=== PATIENT | female | born 1965 ===

== ENCOUNTER 2017-01-13 08:59 | Emergency (ER) | payer MEDICAID ==
[2017-01-13 09:17] VITALS: BP 118/70; PULSE 59; RESP 20; TEMP 98.2; O2SAT 100
--- NOTE | 2017-01-13 09:35 | ED PDOC ---
Upper Extremity Pain/Injury Time Seen by Provider: 01/13/17 09:28 Chief Complaint (Nursing): Upper Extremity Problem/Injury History Per: Patient (Left sided neck pain radiating to left shopulder x 13 days. No trauma. No weakness or parasthesias) Onset/Duration Of Symptoms: Days (13) Current Symptoms Are (Timing): Still Present Quality: Sharp Severity: Mild Pain Scale Rating Of: 3 Past Medical History Vital Signs: Last Vital Signs Temp 98.2 F 01/13/17 09:14 Pulse 59 L 01/13/17 09:14 Resp 20 01/13/17 09:14 BP 118/70 01/13/17 09:14 Pulse Ox 100 01/13/17 09:14 - Medical History PMH: No Chronic Diseases - Family History Family History: States: Unknown Family Hx - Home Medications Home Medications: Ambulatory Orders Medication Instructions Recorded Cyclobenzaprine [Cyclobenzaprine 10 mg PO Q8 #10 tab 01/13/17 HCl] Naproxen [Naprosyn] 500 mg PO Q12H #20 tab 01/13/17 - Allergies Allergies/Adverse Reactions: Allergies Allergy/AdvReac Type Severity Reaction Status Date / Time No Known Allergies Allergy Verified 01/13/17 09:32 Review of Systems Constitutional: Negative for: Fever Musculoskeletal: Positive for: Neck Pain Neurological: Negative for: Weakness, Numbness Physical Exam - Physical Exam Appears: Positive for: Non-toxic, No Acute Distress Skin: Positive for: Normal Color, Warm, DRY Neck: Negative for: Normal (Left paracervical spasm and tenderness. No midline tenderness or deformity) Extremity: Positive for: Normal ROM Neurologic/Psych: Positive for: Alert, Oriented. Negative for: Motor/Sensory Deficits - ECG O2 Sat by Pulse Oximetry: 100 Disposition - Clinical Impression Clinical Impression: Radiculopathy of cervical region - Patient ED Disposition Is Patient to be Admitted: No Counseled Patient/Family Regarding: Studies Performed, Diagnosis, Need For Followup, Rx Given - Disposition Referrals: [facility] [Outside] Disposition: Routine/Home Disposition Time: 09:55 Condition: FAIR Prescriptions: Cyclobenzaprine [Cyclobenzaprine HCl] 10 mg PO Q8 #10 tab Naproxen [Naprosyn] 500 mg PO Q12H #20 tab Instructions: Cervical Radiculopathy (ED) Print Language: OCCITAN
--- NOTE | 2017-01-13 13:24 | RAD ---
PROCEDURE: Cervical Spine Radiographs. HISTORY: Pain. COMPARISON: None available. FINDINGS: BONES: Straightening of the normal cervical lordosis may be related to muscle spasm or positioning. No fracture. Dens tip is obscured, partially obscured ; visualized portions of the dens appear intact. DISC SPACES: Unremarkable. SOFT TISSUES: Unremarkable. No prevertebral soft tissue swelling. OTHER FINDINGS: None. IMPRESSION: Straightening of the normal cervical lordosis may be related to muscle spasm or positioning.
== END 2017-01-13 10:46 | disposition home or self-care (01) ==
LOC: H.ER 08:59
DX: M54.2 Cervicalgia (principal); M54.12 Radiculopathy, cervical region

== ENCOUNTER 2017-04-04 14:12 | Emergency (ER) | payer MEDICAID ==
[2017-04-04 14:31] VITALS: BP 121/68; PULSE 62; RESP 18; TEMP 98.2; O2SAT 99
--- NOTE | 2017-04-04 15:19 | ED PDOC ---
Upper Extremity Pain/Injury Time Seen by Provider: 04/04/17 14:43 Chief Complaint (Nursing): Upper Extremity Problem/Injury Chief Complaint (Provider): right arm pain History Per: Patient History/Exam Limitations: no limitations Additional Complaint(s): 51yo F in ED for eval of right elbow pain after bumping it on a wall 2 months ago. pt admits tot FROM of elbow, able to lift items and bring food to mouth etc. Pt denies numbness/tingling. admits to pin point tenderness to lateral aspect of elbow no radiation of pain. has not been seen by pmd. Past Medical History Reviewed: Historical Data, Nursing Documentation, Vital Signs Vital Signs: Last Vital Signs Temp 98.2 F 04/04/17 14:29 Pulse 62 04/04/17 14:29 Resp 18 04/04/17 14:29 BP 121/68 04/04/17 14:29 Pulse Ox 99 04/04/17 14:29 - Medical History PMH: No Chronic Diseases - Family History Family History: States: Unknown Family Hx - Home Medications Home Medications: Ambulatory Orders Medication Instructions Recorded Cyclobenzaprine [Cyclobenzaprine 10 mg PO Q8 #10 tab 01/13/17 HCl] Naproxen [Naprosyn] 500 mg PO Q12H #20 tab 01/13/17 Naproxen 500 mg PO BID #15 tab 04/04/17 - Allergies Allergies/Adverse Reactions: Allergies Allergy/AdvReac Type Severity Reaction Status Date / Time No Known Allergies Allergy Verified 04/04/17 14:29 Review of Systems ROS Statement: Except As Marked, All Systems Reviewed And Found Negative Musculoskeletal: Positive for: Other (elbow pain) Physical Exam - Reviewed Nursing Documentation Reviewed: Yes Vital Signs Reviewed: Yes - Physical Exam Appears: Positive for: Well, Non-toxic, No Acute Distress Skin: Positive for: Normal Color, Warm, DRY Cardiovascular/Chest: Positive for: Regular Rate, Rhythm Respiratory: Positive for: CNT, Normal Breath Sounds Extremity: Positive for: Other (elbow right: tenderness very mild to lateral olecron no swelling no deformity. FROM of elbow and wrist. nuerovasc intact) Neurologic/Psych: Positive for: Alert, Oriented - ECG O2 Sat by Pulse Oximetry: 99 Medical Decision Making Medical Decision Making: no indication for xray at this time. Pt will need followup with orthopedics and pmd most likely tendinitis and given sling and naproxen for pain. Disposition - Clinical Impression Clinical Impression: Elbow tendonitis - Patient ED Disposition Is Patient to be Admitted: No Counseled Patient/Family Regarding: Diagnosis, Need For Followup, Rx Given - Disposition Referrals: [facility] [place] [Outside] [facility] [place] [Outside] [facility] [Outside] Disposition: Routine/Home Disposition Time: 15:23 Condition: STABLE Prescriptions: Naproxen 500 mg PO BID #15 tab Instructions: Tendinitis (ED) Print Language: JAPANESE
== END 2017-04-04 15:15 | disposition home or self-care (01) ==
LOC: H.ER 14:12
DX: M77.9 Enthesopathy, unspecified (principal)

== ENCOUNTER 2017-07-21 14:47 | Emergency (ER) | payer OTHER, MEDICAID ==
[2017-07-21 15:20] VITALS: BP 110/61; PULSE 69; RESP 18; TEMP 96.8; O2SAT 100
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
--- NOTE | 2017-07-21 16:39 | RAD ---
HISTORY: thoracic pain COMPARISON: None available. TECHNIQUE: Chest PA and lateral FINDINGS: LUNGS: No focal consolidation. Please note that chest x-ray has limited sensitivity for the detection of pulmonary masses. PLEURA: No significant pleural effusion identified. No definite pneumothorax . CARDIOVASCULAR: The cardiomediastinal silhouette appears within normal limits of size. OSSEOUS STRUCTURES: No acute osseous abnormality identified. VISUALIZED UPPER ABDOMEN: Unremarkable. OTHER FINDINGS: None. IMPRESSION: No focal consolidation, significant pleural effusion, or definite pneumothorax identified.
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
== END 2017-07-21 17:47 | disposition home or self-care (01) ==
LOC: H.ER 14:47
DX: S09.90XA Unspecified injury of head, initial encounter (principal); S16.1XXA Strain of muscle, fascia and tendon at neck level, initial encounter; S39.012A Strain of muscle, fascia and tendon of lower back, initial encounter; V43.62XA Car passenger injured in collision with other type car in traffic accident, initial encounter; Y92.410 Unspecified street and highway as the place of occurrence of the external cause

== ENCOUNTER 2018-01-06 10:33 | Day surgery (SDC) | payer MEDICAID ==
[2018-01-06] MEDS ORDERED: Lactated Ringer's 500 ML IV ONE (11:12)
[2018-01-06] MEDS ORDERED: Propofol 10 mg/ml Inj (20 ML) ONE (12:16)
[2018-01-06 13:03] VITALS: TEMP 97.1; O2SAT 100
[2018-01-06 13:37] VITALS: BP 103/68; PULSE 60; RESP 15
== END 2018-01-06 13:36 | disposition home or self-care (01) ==
LOC: H.ENDO 10:33
PROVIDERS: ATTEND Internal Medicine Gastroenterology
DX: D50.9 Iron deficiency anemia, unspecified (principal); D12.5 Benign neoplasm of sigmoid colon; K64.0 First degree hemorrhoids; K31.89 Other diseases of stomach and duodenum; K21.0 Gastro-esophageal reflux disease with esophagitis
CPT/HCPCS: 43239; 45385; 88305; 88312; 88313; 88342; J2001; J2704; J7120

== ENCOUNTER 2018-04-17 16:12 | Emergency (ER) | payer MEDICAID ==
[2018-04-17 16:34] VITALS: BP 107/72; PULSE 70; RESP 16; TEMP 98.5; O2SAT 99
[2018-04-17] MEDS ORDERED: Naproxen 500 MG TAB PO STA (18:23)
[2018-04-17] MEDS ORDERED: Naproxen 500 MG TAB PO ONE (18:27)
--- NOTE | 2018-04-17 19:30 | ED PDOC ---
Lower Extremity Pain/Injury Time Seen by Provider: 04/17/18 17:26 Chief Complaint (Nursing): Lower Extremity Problem/Injury Chief Complaint (Provider): Left knee pain x 1 week History Per: Patient History/Exam Limitations: no limitations Onset/Duration Of Symptoms: Days Current Symptoms Are (Timing): Still Present Additional Complaint(s): 52 yo female with no medical problems presents for evaluation of left knee pain. PT reports pain 2-3 months but worse the last 1 week. No fever/chills. No recent trauma. PT states it feels slightly swollen intermittently. PT has not taken anything at home for pain. Pt has not seen PMD or orthopedics. Past Medical History Reviewed: Historical Data, Nursing Documentation, Vital Signs Vital Signs: Last Vital Signs Temp 98.5 F 04/17/18 16:32 Pulse 70 04/17/18 16:32 Resp 16 04/17/18 16:32 BP 107/72 04/17/18 16:32 Pulse Ox 99 04/17/18 16:32 - Medical History PMH: Anemia - Surgical History Surgical History: No Surg Hx - Family History Family History: States: Unknown Family Hx - Living Arrangements Living Arrangements: With Family - Social History Current smoker - smoking cessation education provided: No - Home Medications Home Medications: Ambulatory Orders Medication Instructions Recorded Naproxen [Naprosyn] 500 mg PO BID PRN #20 tablet 04/17/18 - Allergies Allergies/Adverse Reactions: Allergies Allergy/AdvReac Type Severity Reaction Status Date / Time No Known Allergies Allergy Verified 01/06/18 11:10 Review of Systems ROS Statement: Except As Marked, All Systems Reviewed And Found Negative Constitutional: Negative for: Fever, Chills Musculoskeletal: Positive for: Other Skin: Negative for: Bruising Physical Exam - Reviewed Nursing Documentation Reviewed: Yes Vital Signs Reviewed: Yes - Physical Exam Appears: Positive for: Well, Non-toxic, No Acute Distress Head Exam: Positive for: ATRAUMATIC, NORMAL INSPECTION, NORMOCEPHALIC Skin: Positive for: Normal Color, Warm, DRY Eye Exam: Positive for: Normal appearance ENT: Positive for: Normal ENT Inspection Neck: Positive for: Normal, Painless ROM Cardiovascular/Chest: Negative for: Bradycardia, Tachycardia Respiratory: Negative for: Accessory Muscle Use, Respiratory Distress Back: Positive for: Normal Inspection Extremity: Positive for: Normal ROM. Negative for: Tenderness, Deformity, Swelling Neurologic/Psych: Positive for: Alert - ECG O2 Sat by Pulse Oximetry: 99 Medical Decision Making Medical Decision Making: XR without acute abnormalities Disposition - Clinical Impression Clinical Impression: Knee pain - Disposition Referrals: Harjit Wang III, MD [Staff Provider] - Disposition: Routine/Home Disposition Time: 19:00 Condition: STABLE Prescriptions: Naproxen [Naprosyn] 500 mg PO BID PRN #20 tablet PRN Reason: Pain Instructions: Chronic Knee Pain Forms: [employer] (South Sudanese)
--- NOTE | 2018-04-18 16:15 | RAD ---
Date of service: 04/17/2018 PROCEDURE: Left Knee Radiographs. HISTORY: Pain. COMPARISON: None. FINDINGS: BONES: Normal. No fracture. JOINTS: Minor posterior patella osteophyte formation. Joint spaces relatively preserved JOINT EFFUSION: None. OTHER FINDINGS: None. IMPRESSION: No evidence of acute displaced fracture nor dislocation. Tiny posterior patellar osteophyte formation
== END 2018-04-17 19:38 | disposition home or self-care (01) ==
LOC: H.ER 16:12
DX: M25.562 Pain in left knee (principal)

== ENCOUNTER 2018-06-16 15:02 | Emergency (ER) | payer MEDICAID ==
[2018-06-16 15:25] VITALS: BP 107/68; PULSE 62; RESP 16; TEMP 97.6; O2SAT 99
--- NOTE | 2018-06-16 15:40 | ED PDOC ---
History of Present Illness History of Present Illness: 52 year old female with past medical history of anemia presents to the emergency department complaining of subjective fever, productive cough, sore throat, body aches x 5 days. Cough is productive of thick yellow sputum. Sore throat is worse with swallowing. Also complaining of the thoracic back pain when coughing. Patient has not taken any medications for her symptoms. Denies flu shot. Denies chills, nausea, vomiting, abdominal pain, diarrhea, hemoptysis, chest pain, vision changes, urinary symptoms, rash, weakness, palpitations, syncope. HPI: Influenza Chief Complaint: Cough, Cold, Congestion Past Medical History Reviewed: Historical Data, Nursing Documentation, Vital Signs Vital Signs: Last Vital Signs Temp 97.6 F 06/16/18 15:21 Pulse 62 06/16/18 15:21 Resp 16 06/16/18 15:21 BP 107/68 06/16/18 15:21 Pulse Ox 99 06/16/18 15:21 - Medical History PMH: Anemia - Family History Family History: States: Unknown Family Hx - Home Medications Home Medications: Ambulatory Orders Medication Instructions Recorded Naproxen [Naprosyn] 500 mg PO BID PRN #20 tablet 04/17/18 Azithromycin [Z-Hieu] 250 mg PO DAILY #6 tab 06/16/18 Benzonatate [Tessalon Perle] 100 mg PO Q8H PRN #21 capsule 06/16/18 Fluticasone Propionate [Flonase] 2 spr NS DAILY #120 spr 06/16/18 - Allergies Allergies/Adverse Reactions: Allergies Allergy/AdvReac Type Severity Reaction Status Date / Time No Known Allergies Allergy Verified 06/16/18 15:21 Review of Systems ROS Statement: Except As Marked, All Systems Reviewed And Found Negative Constitutional: Positive for: Fever. Negative for: Chills, Sweats Eyes: Negative for: Vision Change, Eyelid Inflammation, Redness ENT: Positive for: Nose Discharge, Nose Congestion, Throat Pain. Negative for: Ear Pain, Ear Discharge, Nose Pain, Mouth Pain, Mouth Swelling, Throat Swelling Cardiovascular: Negative for: Chest Pain, Palpitations, Light Headedness Respiratory: Positive for: Cough, Sputum (yellow, thick). Negative for: Shortness of Breath, Hemoptysis, Pleuritic Pain, Wheezing Gastrointestinal: Negative for: Nausea, Vomiting, Abdominal Pain, Diarrhea Genitourinary Female: Negative for: Dysuria, Frequency, Incontinence Musculoskeletal: Positive for: Other (generalized myalgias) Skin: Negative for: Rash Neurological: Positive for: Headache. Negative for: Weakness, Numbness, Confusion, Dizziness Physical Exam - Reviewed Nursing Documentation Reviewed: Yes Vital Signs Reviewed: Yes - Physical Exam Appears: Positive for: Well, Non-toxic, No Acute Distress Head Exam: Positive for: ATRAUMATIC, NORMAL INSPECTION, NORMOCEPHALIC Skin: Positive for: Normal Color, Warm, DRY Eye Exam: Positive for: EOMI, Normal appearance, PERRL ENT: Positive for: Normal ENT Inspection, Pharynx Is (mild erythema, mild tonsillar swelling bilaterally; no exudates; no uvular deviation ), TM Is/Are (small amount of fluid behind TM bilaterally; non-erythematous, non-bulging), Sinus Pain/Drainage (mild sinus tenderness over frontal sinuses; no drainage), Hearing Is (intact), Nasal Congestion, Tonsillar Swelling. Negative for: Pha ryngeal Erythema, Tonsillar Exudate Neck: Positive for: Normal, Painless ROM, Supple Cardiovascular/Chest: Positive for: Regular Rate, Rhythm Respiratory: Positive for: Normal Breath Sounds, Rhonchi (intermittent bilaterally) Pulses-Radial (L): 2+ Pulses-Radial (R): 2+ Back: Positive for: Normal Inspection. Negative for: Decreased ROM Extremity: Positive for: Normal ROM, Capillary Refill (<2s). Negative for: Tenderness, Deformity, Swelling Neurologic/Psych: Positive for: Alert, x ray technologist II-XII (intact), Oriented, Gait (steady). Negative for: Motor/Sensory Deficits Medical Decision Making Medical Decision Making: Initial Plan * rapid flu * rapid strep * CXR CXR: no active disease Flu: negative Strep: negative Results of diagnostic studies discussed with patient. Will give antibiotics secondary to sinus symptoms, age, and thick, yellow sputum. Educated on prescription use and the importance of follow-up. Patient agrees and understands. Patient stable for discharge. Impression Acute Bronchitis Plan * tessalon perles * flonase * z-hieu * increase fluids * followup with PMD * return for new/worsening symptoms - ECG O2 Sat by Pulse Oximetry: 99 Disposition - Clinical Impression Clinical Impression: Acute bronchitis - Disposition Referrals: [facility] [Outside] Disposition: Routine/Home Disposition Time: 17:30 Condition: IMPROVED Prescriptions: Azithromycin [Z-Hieu] 250 mg PO DAILY #6 tab Benzonatate [Tessalon Perle] 100 mg PO Q8H PRN #21 capsule PRN Reason: Cough Fluticasone Propionate [Flonase] 2 spr NS DAILY #120 spr Instructions: Acute Bronchitis Forms: [facility] (Georgian)
--- NOTE | 2018-06-16 16:07 | RAD ---
HISTORY: Evaluate for pneumonia COMPARISON: 07/21/2017 TECHNIQUE: Chest PA and lateral FINDINGS: LINES AND TUBES: None. LUNG AND PLEURA: The lungs are well inflated and clear. No pleural effusion or pneumothorax. HEART AND MEDIASTINUM: The heart is not enlarged. No aortic atherosclerotic calcification present. The hilar and mediastinal contours are within normal limits. SKELETAL STRUCTURES: The bony structures are within normal limits for the patient's age. VISUALIZED UPPER ABDOMEN: Normal. OTHER FINDINGS: None. IMPRESSION: No active pulmonary disease.
== END 2018-06-16 17:40 | disposition home or self-care (01) ==
LOC: H.ER 15:02
DX: J20.9 Acute bronchitis, unspecified (principal); D64.9 Anemia, unspecified